=== PATIENT | male | born 1980 | race Caucasian/White ===

== ENCOUNTER 2016-11-11 20:32 | Inpatient (IN) | payer OTHER ==
--- NOTE | ~2016-11-11 | HP ---
Unit #: [id number] #: [id number] Patient: LUIS SON [id number] [place] [address] [id number] MR#: [id number] NAME: LUIS SON. ROOM: P210 Age: 36 Sex: M Admission Date: 11/11/2016 : 1980 Attending Physician: Nikko Menon M.D. Admitting Physician: Nikko Menon M.D. Primary Care Physician: John Cervantes M.D. HISTORY AND PHYSICAL HISTORY OF PRESENT ILLNESS Luis is a 36 year old admitted to [address] [place] [address] because of his abuse of alcohol. He is detoxing. PAST MEDICAL HISTORY 1. Long history of alcohol abuse. 2. History of psoriasis. 3. History of genital herpes. PAST SURGICAL HISTORY Oral. ALLERGIES Penicillin. SOCIAL HISTORY He does not smoke. Drinks a 12-pack on a daily basis. Admits to using marijuana on occasion. FAMILY HISTORY Medically noncontributory. REVIEW OF SYSTEMS CONSTITUTIONAL: No fever or chills. HEENT: Denies any sore throat, ear pain or runny nose. CARDIOVASCULAR: Denies chest pain, irregular heart rhythm or palpitations. CHEST: Denies shortness of breath or cough. No hemoptysis. GASTROINTESTINAL: Denies nausea, vomiting, diarrhea or chronic constipation. ENDOCRINE: Denies history of increased thirst or urination. No recent significant weight loss or gain. GENITOURINARY: Denies dysuria, frequency, or hematuria. SKIN: Denies any rashes. HEMATOLOGIC: Denies history of increased bleeding or bruising. MUSCULOSKELETAL: Denies any hot, swollen joints. No generalized muscle pain. NEUROLOGIC: Denies problems with vision or speech. No frequent, severe headaches. No numbness, tingling or weakness in any extremities. Denies loss of bladder or bowel control. CURRENT MEDICATIONS 1. Detox protocol. 2. Protonix 40 mg q. day. Unit #: [id number] #: [id number] Patient: LUIS SON PHYSICAL EXAMINATION GENERAL: Alert, well nourished. No apparent distress. VITAL SIGNS: Blood pressure 170/80, heart rate 100, respirations 16, and temperature 98.6. WEIGHT: 175. HEIGHT: 5 feet 7 inches. SKIN: Warm and dry without rash or lesion. HEENT: Normocephalic. TMs not viewed. Oral and nasal passages clear. Conjunctivae clear. PERRLA. EOMs intact. NECK: Supple without lymphadenopathy or thyromegaly. HEART: Regular rate and rhythm without murmur. LUNGS: Clear. ABDOMEN: Soft, nontender. : Not done. EXTREMITIES: No evidence of cyanosis, clubbing or edema. Moves all without focal deficit. NEUROLOGICAL: Grossly within normal limits. Cranial Nerves: II: Visual sands are intact. III, IV AND : Extraocular movements are intact. Pupils are equal, round and reactive to light. V: Facial sensation is grossly normal. VII: Facial movements and expression are normal. VIII: Auditory acuity grossly intact. IX, X: Uvula is midline. Phonation is normal. XI: Patient shrugs shoulders and turns head normally. XII: Tongue protrudes in the midline. Sensory and Motor Function: Sensory and motor sensation is grossly normal. Motor: moves all extremities well. Coordination: Gait is normal. Deep Tendon Reflexes: Intact. IMPRESSION Psychiatric admission. RECOMMENDATIONS PSYCHIATRIC: Per psychiatrist. MEDICAL: I see no contraindication to participate in this facility's activities. MEDICAL PROGNOSIS Good. MEDICAL CONDITION Stable. Dictated by... Ирина [place] PLorenzaALoernza-C. for Dontrell Espinosa/isis TD: 11/12/2016 13:45 JOB #: [id number] Unit #: [id number] #: [id number] Patient: LUIS SON HISTORY AND PHYSICAL Page 1 of 1 X Ирина Washington HISTORY AND PHYSICAL
--- NOTE | ~2016-11-11 | PA ---
Unit #: [id number] #: [id number] Patient: SHEREE SON [id number] [place] [address] [id number] I MR#: [id number] NAME: SHEREE SON ROOM: P204 Age: 36 Sex: M Admission Date: 11/11/2016 : 1980 Date of Assessment: 11/12/2016 Attending Physician: Nikko Menon M.D. Admitting Physician: Nikko Menon M.D. Primary Care Physician: John Cervantes M.D. PSYCHIATRIC ASSESSMENT DATE OF SERVICE 11/12/2016. INFORMANTS The patient partially reliable; OLOP, reliable. CHIEF COMPLAINT Alcohol detox. HISTORY OF PRESENT ILLNESS Mr. Son is a 36-year-old man, who reports that he has significant detox symptomatology at home and has been drinking daily for the past 6 months. This has caused significant social and occupational problems, although he had no suicidal ideation, intent, or plan. He was admitted for detox. PAST PSYCHIATRIC HISTORY No previous inpatient psychiatric care. He denies any current psychiatric medications or illnesses. FAMILY PSYCHIATRIC HISTORY The patient denies a family history of mental illness or substance abuse. 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 He is a single heterosexual man, who has a supportive girlfriend. He is a high-school graduate, who has been unemployed for the past 4 years and is living with his girlfriend and his mother. PAST MEDICAL HISTORY The patient suffers from GERD. MEDICATIONS Prilosec 20 mg daily. ALLERGIES Penicillin. SUBSTANCE USE HISTORY As noted, the patient has been drinking heavily for the past 6 months. MENTAL STATUS EXAMINATION The patient presented as a mildly disheveled man, who appeared his stated Unit #: [id number] #: [id number] Patient: SHEREE SON age. He was cooperative with the examination. His speech was spontaneous and easily understood. His musculoskeletal examination was calm. His mood was anxious with a congruent affect. He was alert and fully oriented. His memory and concentration were fair. His thought processes were goal directed with no active psychosis. He denied suicidal ideation, intent, or plan. Insight and judgment were fair. Fund of knowledge and abstraction were fair. ASSETS AND LIABILITIES The patient is youthful and voluntary for treatment. Liabilities include ongoing alcohol use, lack of employment. ADMITTING DIAGNOSES AXIS I: Alcohol dependence with withdrawal, uncomplicated. AXIS II: No diagnosis. AXIS III: None acute. AXIS IV: AXIS V: PSYCHIATRIC PLAN The patient was admitted and placed on the alcohol detox protocol. A physical examination and baseline laboratory studies will be ordered and reviewed. TREATMENT GOALS Establishment of sobriety, improvement in insight, and improvement in coping skills. DISCHARGE PLANNING Follow up with chemical dependence programing of the patient's choice. ESTIMATED LENGTH OF STAY 5 days. Dictated by... Nikko Menon M.D. CHERYLE/marely TD: 01/20/2017 14:14 JOB #: [id number] PSYCHIATRIC ASSESSMENT Page 1 of 1 X Nikko Menon MD X PSYCHIATRIC ASSESSMENT
--- NOTE | ~2016-11-11 | DS ---
Unit #: [id number] #: [id number] Patient: SHEREE SON [id number] [facility] [address] [place] [address] [id number] I MR#: [id number] NAME: SHEREE SON. ROOM: P204 Age: 36 Sex: M Admission Date: 11/11/2016 : 1980 Discharge Date: 11/14/2016 Attending Physician: Nikko Menon M.D. Primary Care Physician: John Cervantes M.D. DISCHARGE SUMMARY REASON FOR ADMISSION Mr. Son is a 36-year-old man, who reports increasing alcohol use over the past 6 months with difficulty tolerating detox in the home setting. He had no suicidal ideation, intent, or plan, and was admitted for alcohol detox. LABORATORY DATA Please see hospital chart. HOSPITAL COURSE The patient was admitted and placed on the alcohol detox protocol. He had active detox symptomatology, and on the date of discharge, he developed increasing confusion, disorientation, and appeared to be hallucinating. He also had a flushed face and other symptoms of delirium tremens. The patient was initially placed and given additional Ativan, but this was ineffective, and eventually, he was deemed medically unstable and was sent to [facility] [place] for evaluation, where he was admitted for inpatient medical alcohol detox. DISCHARGE DIAGNOSES AXIS I: Alcohol dependence with withdrawal, with psychosis. AXIS II: No diagnosis. AXIS III: Delirium tremens. AXIS IV: AXIS V: DISCHARGE INSTRUCTIONS The patient to follow up with attending physician at [facility] [place]. DISCHARGE MEDICATIONS None. CONDITION AT DISCHARGE Fair. PROGNOSIS Fair. DIET AND ACTIVITY Per primary care doctor. Unit #: [id number] #: [id number] Patient: SHEREE SON Dictated by... Nikko Menon M.D. [facility]/modl TD: 01/20/2017 14:17 JOB #: [id number] DISCHARGE SUMMARY Page 1 of 1 X Nikko Menon MD DISCHARGE SUMMARY
[~2016-11-11 20:32] MED LIST: AUGMENTIN PO; BACTRIM DS TABL1 TAB PO; BP PILL; HYDROCODONE-APA1 T30 PO; OMEPRAZOLE40 M1; PENICILLIN; PRILOSEC PO; VICODIN 5/1 TAB 5/50 PO
[2016-11-12 09:37] LABS: BASOPHIL% 0.6 % (0-2.5); EOSINOPHIL% 0.7 % (0.0-7.0); HEMATOCRIT 42.4 % (38.0-50.0); HEMOGLOBIN 14.7 gm/dL (13.0-16.0); LYMPHOCYTE# 1.3 X10e3 (1.0-3.5); LYMPHOCYTE% 21.8 % (17.0-45.0); MEAN CELL VOLUME 93.5 FL (83-96); MEAN CORPUSCULAR HEMOGLOBIN 32.4 PG (28-34); MEAN CORPUSCULAR HGB CONC 34.7 g/dL (30-36); MEAN PLATELET VOLUME 10.5 FL (6.5-11.5); MONOCYTE# 0.6 X10e3 (0-1.0); MONOCYTE% 9.5 % (3.0-12.0); NEUTROPHIL% 67.4 % (40-75); RED BLOOD COUNT 4.53 X10e (3.90-5.60); RED CELL DISTRIBUTION WIDTH 13.1 % (11.0-15.5); WHITE BLOOD COUNT 5.9 X10e3 (4.0-10.5)
[2016-11-12 09:58] LABS: ALBUMIN SERUM 3.9 g/dL (3.5-5.0); ALKALINE PHOSPHATASE 97 U/L (32-92); ALT (SGPT) 56 U/L (10-40); AST (SGOT) 146 U/L (10-42); BILIRUBIN,TOTAL 2.9 mg/dL (0.2-2.0); CALCIUM SERUM 9.1 mg/dL (8.4-10.2); CARBON DIOXIDE 30 mmol/L (22-31); CHLORIDE 97 mmol/L (100-111); CREATININE SERUM 0.6 mg/dL (0.6-1.4); GLOM FILT RATE Estimated 131.2 mL/min (>60); GLUCOSE FASTING 76 mg/dL (70-110); POTASSIUM 3.5 mmol/L (3.5-5.1); PROTEIN TOTAL SERUM 8.2 g/dL (6.0-8.3); SODIUM 136 mmol/L (135-145)
[2016-11-12 10:01] LABS: BLOOD UREA NITROGEN <5 mg/dL (9-23); BUN/CREATININE RATIO 8.33
[2016-11-12 10:13] LABS: DIFF IND YES; PLATELET COUNT 92 X10e3 (140-420)
[2016-11-12 10:18] LABS: PLATELET ESTIMATE DECREASED (NORMAL); RBC NORMAL YES
== END 2016-11-14 07:10 | DRG 897 ==
LOC: P2S 20:32
PROVIDERS: Psychiatry & Neurology Psychiatry
PROC: HZ2ZZZZ Detoxification Services for Substance Abuse Treatment (ICD-10-PCS; principal; 2016-11-11)
DX: F10.10 Alcohol abuse, uncomplicated (principal); L40.9 Psoriasis, unspecified; Z88.0 Allergy status to penicillin
CPT/HCPCS: 80053; 85025; 86592; 94002; 94761; J2060; J3486